=== PATIENT | female | born 1955 | race Caucasian/White ===

== ENCOUNTER 2020-07-04 11:48 | Inpatient (IN) | payer MEDICARE ==
[~2020-07-04] VITALS: Ht 152.4 cm; Wt 90.7 kg
[2020-07-04] MEDS ORDERED: ALBUTEROL SULF 0.083% NEB SOLN 3 ML NEB NEB STA (12:08)
[2020-07-04] MEDS ORDERED: METHYLPREDNISOLONE SOD SUCC 125 MG/2ML VIAL IV STA (12:08)
[2020-07-04] MEDS ORDERED: NITROGLYCERIN 2% OINT 1 GM PKT TOP ONE (12:15)
[2020-07-04] MEDS ORDERED: IPRATROPIUM BROMIDE 0.02% 2.5 ML NEB NEB ONE (12:15)
[2020-07-04 12:32] LABS: BASOPHILS # (AUTO) 0.1 (0.0-0.1); BASOPHILS % 0.7 % (0.0-1.0); EOSINOPHILS # (AUTO) 0.2 (0.0-0.4); EOSINOPHILS % 1.2 % (0.0-6.0); HEMATOCRIT 44.8 % (34.2-44.1); LYMPHOCYTES # (AUTO) 2.5 (1.0-3.2); LYMPHOCYTES % 13.7 % (18.0-39.1); MEAN CORPUSCULAR HEMOGLOBIN 29.8 pg (28-32); MEAN CORPUSCULAR HGB CONC 31.3 g/dL (31-35); MEAN CORPUSCULAR VOLUME 95.3 fL (81-99); MONOCYTES # (AUTO) 0.8 (0.2-0.8); MONOCYTES % 4.3 % (4.4-11.3); NEUTROPHILS # (AUTO) 14.3 (2.1-6.9); PLATELET COUNT 365 x10e3/uL (140-360); RED CELL DISTRIBUTION WIDTH 14.2 % (11.7-14.4)
[2020-07-04 12:38] LABS: INR 0.91; PROTHROMBIN TIME 12.8 seconds (11.9-14.5)
[2020-07-04 12:39] LABS: PARTIAL THROMBOPLASTIN TIME 28.2 seconds (23.8-35.5)
[2020-07-04 12:43] LABS: CLARITY,URINE CLEAR (CLEAR); COLOR,URINE YELLOW (YELLOW); LEUKOCYTE ESTERASE ,URINE NEGATIVE (NEGATIVE); NITRITE,URINE NEGATIVE (NEGATIVE)
[2020-07-04 12:44] LABS: BACTERIA,URINE RARE /HPF; KETONES,URINE NEGATIVE (NEGATIVE); PROTEIN,URINE DIPSTICK >=300 (NEGATIVE); URINE UROBILINOGEN 0.2 mg/dL (0.2 - 1)
[2020-07-04 12:46] LABS: AMPHETAMINES SCREEN,URINE NEGATIVE (NEGATIVE); BENZODIAZEPINES SCREEN,URINE POSITIVE (NEGATIVE); PHENCYCLIDINE SCREEN,URINE NEGATIVE (NEGATIVE)
[2020-07-04 12:47] LABS: ALANINE AMINOTRANSFERASE 69 IU/L (0-55); ALBUMIN 3.6 g/dL (3.5-5.0); ALBUMIN/GLOBULIN RATIO 0.9 (0.8-2.0); ALKALINE PHOSPHATASE 96 IU/L (40-150); ANION GAP 20.6 mmol/L (8-16); BLOOD UREA NITROGEN 13 mg/dL (7-26); BUN/CREATININE RATIO 16 (6-25); CALCIUM 9.1 mg/dL (8.4-10.2); CARBON DIOXIDE 20 mmol/L (22-29); CHLORIDE 103 mmol/L (98-107); CREATINE KINASE 45 IU/L (29-168); CREATININE, SERUM 0.81 mg/dL (0.57-1.11); EST GLOMERULAR FILTRATION RATE > 60 ML/MIN (60-); GLUCOSE 190 mg/dL (74-118); MAGNESIUM 1.9 MG/DL (1.3-2.1); POTASSIUM 4.6 mmol/L (3.5-5.1); SODIUM 139 mmol/L (136-145)
[2020-07-04] MEDS ORDERED: LEVOFLOXACIN 750MG/D5W 150ML 150 ML IV STA (12:56)
[2020-07-04] MEDS ORDERED: CEFTRIAXONE SOD 1 GM VIAL IV SCH (13:00)
[2020-07-04] MEDS ORDERED: CEFTRIAXONE SOD 1 GM in SODIUM CHLORIDE 0.9% 50ML 50 ML IV SCH (13:00)
[2020-07-04] MEDS ORDERED: AZITHROMYCIN 500MG/NS 250 ML 250 ML IV SCH (13:00)
[2020-07-04] MEDS ORDERED: SODIUM CHLORIDE 0.9% 500ML 500 ML IV ONE (13:15)
[2020-07-04] MEDS ORDERED: ALBUTEROL SULF 0.5% NEB SOLN 20 ML BTL ONE (13:31)
[2020-07-04] MEDS ORDERED: IPRATROPIUM BROMIDE 0.02% 2.5 ML NEB ONE (13:32)
[2020-07-04] MEDS ORDERED: ALBUTEROL SULF 0.083% NEB SOLN 3 ML NEB ONE (13:32)
[2020-07-04] MEDS ORDERED: ENALAPRILAT IV INJ 1.25 MG/ML VIAL IV STA (14:40)
[2020-07-04] MEDS ORDERED: ONDANSETRON HCL INJ 2MG/ML 2ML 2 MG/ML VIAL IV PRN (15:00)
[2020-07-04] MEDS ORDERED: MORPHINE SULFATE INJ 2 MG/ML SYR IV PRN (15:00)
[2020-07-04] MEDS ORDERED: HYDRALAZINE HCL 20 MG/ML VIAL IV PRN (15:00)
[2020-07-04] MEDS ORDERED: ALBUTEROL SULF 0.083% NEB SOLN 3 ML NEB NEB PRN (15:00)
[2020-07-04 16:45] VITALS: BP 145/81
[2020-07-04 17:15] VITALS: BP 145/81
[2020-07-04] MEDS ORDERED: ACETAMINOPHEN 325 MG TAB PO PRN (17:45)
[2020-07-04] MEDS ORDERED: FUROSEMIDE INJ 10 MG/ML 4 ML VIAL IV ONE (17:45)
[2020-07-04] MEDS: NITROGLYCERIN 2% OINT 1 GM PKT TOP SCH (18:06)
[2020-07-04 18:08] VITALS: BP 145/81
[2020-07-04 20:00] VITALS: BP 176/83
[2020-07-04] MEDS: FAMOTIDINE 20 MG/2 ML VIAL IV SCH (20:18)
[2020-07-04] MEDS: ALBUTEROL/IPRATROPIUM 3 ML NEB NEB SCH (20:25)
[2020-07-04] MEDS ORDERED: METHYLPREDNISOLONE SOD SUCC 125 MG/2ML VIAL IV SCH (22:00)
[2020-07-04 22:24] LABS: CREATINE KINASE MB 4.1 ng/mL (0-5.0)
[2020-07-05] VITALS (8 sets, daily range): BP systolic 145–176; BP diastolic 65–91
[2020-07-05] MEDS: NITROGLYCERIN 2% OINT 1 GM PKT TOP SCH (01:00)
[2020-07-05] MEDS ORDERED: POTASSIUM CHLORIDE 20 MEQ TAB CR PO PRN (01:15)
[2020-07-05] MEDS ORDERED: ALBUTEROL/IPRATROPIUM 3 ML NEB NEB PRN (01:15)
[2020-07-05] MEDS ORDERED: HYDROCODONE/APAP 5MG-325MG TAB PO PRN (01:15)
[2020-07-05] MEDS ORDERED: BENZONATATE 100 MG CAP PO PRN (01:15)
[2020-07-05] MEDS ORDERED: DIPHENHYDRAMINE HCL 25 MG CAP PO PRN (01:15)
[2020-07-05] MEDS ORDERED: HYDRALAZINE HCL 20 MG/ML VIAL IV PRN (01:15)
[2020-07-05] MEDS ORDERED: POLYETHYLENE GLYCOL 3350 17 GM PACK PO PRN (01:15)
[2020-07-05] MEDS ORDERED: ONDANSETRON HCL INJ 2MG/ML 2ML 2 MG/ML VIAL IV PRN (01:15)
[2020-07-05] MEDS ORDERED: MELATONIN 5 MG TABLET PO PRN (01:15)
[2020-07-05] MEDS ORDERED: DEXTROSE 50% SYRINGE 50 ML IV PRN ×2 (01:15)
[2020-07-05] MEDS ORDERED: DOCUSATE SODIUM 100 MG CAP PO PRN (01:15)
[2020-07-05] MEDS: ALBUTEROL/IPRATROPIUM 3 ML NEB NEB SCH ×4 (02:15→19:50)
[2020-07-05] MEDS: LOSARTAN POTASSIUM 100 MG TAB PO SCH ×2 (02:36→09:32)
[2020-07-05] MEDS: METHYLPREDNISOLONE SOD SUCC 40 MG/ML VIAL 1ML IV SCH ×2 (02:36→14:00)
[2020-07-05 06:49] LABS: BASOPHILS % 0.2 % (0.0-1.0); HEMATOCRIT 40.7 % (34.2-44.1); LYMPHOCYTES # (AUTO) 1.5 (1.0-3.2); LYMPHOCYTES % 13.2 % (18.0-39.1); MEAN CORPUSCULAR HEMOGLOBIN 29.5 pg (28-32); MEAN CORPUSCULAR HGB CONC 31.9 g/dL (31-35); MEAN CORPUSCULAR VOLUME 92.3 fL (81-99); MONOCYTES # (AUTO) 0.2 (0.2-0.8); NEUTROPHILS # (AUTO) 9.7 (2.1-6.9); NEUTROPHILS % 83.6 % (38.7-80.0); PLATELET COUNT 358 x10e3/uL (140-360); RED BLOOD COUNT 4.41 x10e6/uL (3.6-5.1)
[2020-07-05 07:22] LABS: ALANINE AMINOTRANSFERASE 52 IU/L (0-55); ALBUMIN 3.5 g/dL (3.5-5.0); ALBUMIN/GLOBULIN RATIO 0.9 (0.8-2.0); ALKALINE PHOSPHATASE 75 IU/L (40-150); ANION GAP 17.6 mmol/L (8-16); BLOOD UREA NITROGEN 13 mg/dL (7-26); BUN/CREATININE RATIO 16 (6-25); CALCIUM 9.5 mg/dL (8.4-10.2); CARBON DIOXIDE 25 mmol/L (22-29); CHLORIDE 101 mmol/L (98-107); CHOL/HDL RATIO 3.5 (3.0-3.6); CHOLESTEROL 196 MD/DL (0-199); CREATININE, SERUM 0.81 mg/dL (0.57-1.11); EST GLOMERULAR FILTRATION RATE > 60 ML/MIN (60-); GLUCOSE 231 mg/dL (74-118); HDL CHOLESTEROL 56 MG/DL (40-60); LDL CHOLESTEROL 119 MG/DL (60-130); POTASSIUM 3.6 mmol/L (3.5-5.1); SODIUM 140 mmol/L (136-145); TRIGLYCERIDES 103 MG/DL (0-149)
[2020-07-05] MEDS: PANTOPRAZOLE SOD 40 MG TABEC PO SCH (07:30)
[2020-07-05] MEDS ORDERED: LOSARTAN POTASSIUM 100 MG TAB PO SCH (09:00)
[2020-07-05] MEDS: FAMOTIDINE 20 MG/2 ML VIAL IV SCH ×2 (09:31→20:47)
[2020-07-05] MEDS: LEVOFLOXACIN 500MG/D5W 100ML 100 ML IV SCH (11:12)
[2020-07-05] MEDS ORDERED: SODIUM CHLORIDE 0.9% 250ML 250 ML ONE (11:16)
[2020-07-05] MEDS: ACETAMINOPHEN 325 MG TAB PO PRN (12:20)
[2020-07-05] MEDS: ASPIRIN 81 MG ENTERIC COATED PO SCH (13:45)
[2020-07-05] MEDS ORDERED: FUROSEMIDE INJ 10 MG/ML 4 ML VIAL IV ONE (14:30)
[2020-07-05] MEDS ORDERED: POTASSIUM CHLORIDE 20 MEQ TAB CR PO ONE (14:30)
[2020-07-05] MEDS ORDERED: IOPAMIDOL 370 MG/ML 200 ML INFUS..BTL INJ ONE (15:01)
[2020-07-05] MEDS ORDERED: SODIUM CHLORIDE 0.9% 50ML 50 ML ONE (15:02)
[2020-07-05] MEDS ORDERED: CARVEDILOL 3.125 MG TAB PO SCH (17:00)
[2020-07-05] MEDS ORDERED: ENOXAPARIN SOD INJ 40 MG/0.4 ML SYR SC SCH (17:00)
[2020-07-05] MEDS: ATORVASTATIN 20 MG TAB PO SCH (20:47)
[2020-07-06] VITALS (8 sets, daily range): BP systolic 143–176; BP diastolic 83–108
[2020-07-06] MEDS: ALBUTEROL/IPRATROPIUM 3 ML NEB NEB SCH ×5 (01:52→23:50)
[2020-07-06] MEDS: METHYLPREDNISOLONE SOD SUCC 40 MG/ML VIAL 1ML IV SCH ×2 (02:00→13:00)
[2020-07-06] MEDS: PANTOPRAZOLE SOD 40 MG TABEC PO SCH (09:41)
[2020-07-06] MEDS: FAMOTIDINE 20 MG/2 ML VIAL IV SCH ×2 (09:41→21:45)
[2020-07-06] MEDS: ASPIRIN 81 MG ENTERIC COATED PO SCH (09:41)
[2020-07-06] MEDS: LOSARTAN POTASSIUM 100 MG TAB PO SCH (09:42)
[2020-07-06] MEDS: LEVOFLOXACIN 500MG/D5W 100ML 100 ML IV SCH (12:38)
[2020-07-06] MEDS ORDERED: WAL-FEX ALLERG180 MG PO (12:42)
[2020-07-06] MEDS ORDERED: METHYLPREDNISOLONE SOD SUCC 40 MG/ML VIAL 1ML IV SCH (13:00)
[2020-07-06] MEDS: [UNRECOGNIZED DRUG - REMARK] PO SCH (13:32)
[2020-07-06] MEDS ORDERED: LORATADINE 10 MG TAB PO SCH (14:00)
[2020-07-06] MEDS: ACETAMINOPHEN 325 MG TAB PO PRN (16:14)
[2020-07-06] MEDS: CARVEDILOL 3.125 MG TAB PO SCH (16:50)
[2020-07-06] MEDS: ATORVASTATIN 20 MG TAB PO SCH (21:45)
[2020-07-07] VITALS: BP 157/76
[2020-07-07 04:00] VITALS: BP 150/81
[2020-07-07 07:38] VITALS: BP 162/90
[2020-07-07 07:48] VITALS: BP 162/90
[2020-07-07] MEDS: ASPIRIN 81 MG ENTERIC COATED PO SCH (08:10)
[2020-07-07] MEDS: [UNRECOGNIZED DRUG - REMARK] PO SCH (08:10)
[2020-07-07] MEDS: CARVEDILOL 3.125 MG TAB PO SCH (08:10)
[2020-07-07] MEDS: ALBUTEROL/IPRATROPIUM 3 ML NEB NEB SCH ×2 (08:10→13:40)
[2020-07-07] MEDS: PANTOPRAZOLE SOD 40 MG TABEC PO SCH (08:10)
[2020-07-07] MEDS: LOSARTAN POTASSIUM 100 MG TAB PO SCH (08:10)
[2020-07-07] MEDS: FAMOTIDINE 20 MG/2 ML VIAL IV SCH (08:13)
[2020-07-07] MEDS ORDERED: HOME MEDICATION--PATIENTS OWN PO SCH (09:00)
[2020-07-07] MEDS ORDERED: COREG6.25 MG PO (11:14)
[2020-07-07] MEDS ORDERED: PREDNISONE20 MG PO (11:14)
[2020-07-07] MEDS ORDERED: LEVOFLOXACIN250 MG PO (11:14)
[2020-07-07] MEDS ORDERED: ASPIRIN81 MG PO (11:15)
[2020-07-07] MEDS ORDERED: LOSARTAN POTAS100 MG PO (11:15)
[2020-07-07] MEDS ORDERED: LIPITOR20 MG PO (11:15)
[2020-07-07] MEDS: LEVOFLOXACIN 500MG/D5W 100ML 100 ML IV SCH (11:32)
[2020-07-07 11:38] VITALS: BP 157/81
[2020-07-07 11:56] LABS: HEMATOCRIT 42.7 % (34.2-44.1); HEMOGLOBIN 13.7 g/dL (12.0-16.0)
[2020-07-07 12:23] LABS: ANION GAP 12.9 mmol/L (8-16); BLOOD UREA NITROGEN 22 mg/dL (7-26); BUN/CREATININE RATIO 29 (6-25); CALCIUM 9.2 mg/dL (8.4-10.2); CARBON DIOXIDE 27 mmol/L (22-29); CHLORIDE 101 mmol/L (98-107); CREATININE, SERUM 0.77 mg/dL (0.57-1.11); EST GLOMERULAR FILTRATION RATE > 60 ML/MIN (60-); GLUCOSE 103 mg/dL (74-118); POTASSIUM 3.9 mmol/L (3.5-5.1); SODIUM 137 mmol/L (136-145)
[2020-07-07] MEDS ORDERED: METHYLPREDNISOLONE SOD SUCC 40 MG/ML VIAL 1ML IV SCH (13:00)
[2020-07-07 16:12] VITALS: BP 143/81
== END 2020-07-07 18:15 | disposition home or self-care (01) | DRG 871 ==
LOC: EDBD 11:48 → ER 12:25 → ERHOLD 14:56 → MED/SURG3 16:15
PROVIDERS: ADMIT Internal Medicine; ATTEND Internal Medicine
DX: A41.9 Sepsis, unspecified organism (principal); J18.9 Pneumonia, unspecified organism; I50.33 Acute on chronic diastolic (congestive) heart failure; J44.1 Chronic obstructive pulmonary disease with (acute) exacerbation; I16.1 Hypertensive emergency; J44.0 Chronic obstructive pulmonary disease with (acute) lower respiratory infection; F17.210 Nicotine dependence, cigarettes, uncomplicated; E66.9 Obesity, unspecified; E78.5 Hyperlipidemia, unspecified; R06.03 Acute respiratory distress; Z68.39 Body mass index [BMI] 39.0-39.9, adult; Z88.1 Allergy status to other antibiotic agents; Z88.0 Allergy status to penicillin; Z86.73 Personal history of transient ischemic attack (TIA), and cerebral infarction without residual deficits; Z20.822 Contact with and (suspected) exposure to COVID-19; I11.0 Hypertensive heart disease with heart failure
CPT/HCPCS: 36415; 51700; 71045; 71260; 80048; 80053; 80061; 80307; 80320; 81001; 82550; 82553; 83036; 83605; 83735; 83880; 84484; 85014; 85018; 85025; 85610; 85730; 87040; 87086; 93005; 93306; 94640; 99285; J1940; J1956; J2270; J2920; J2930; J7040; J7050; Q9967; U0002

== ENCOUNTER 2020-07-21 20:48 | Emergency (ER) | payer MEDICARE ==
[~2020-07-21] VITALS: Ht 152.4 cm; Wt 90.7 kg
[~2020-07-21 20:48] MED LIST: ASPIRIN81 MG PO; COREG6.25 MG PO; LEVOFLOXACIN250 MG PO; LIPITOR20 MG PO; LOSARTAN POTAS100 MG PO; PREDNISONE20 MG PO; WAL-FEX ALLERG180 MG PO
[2020-07-21 21:58] LABS: BASOPHILS # (AUTO) 0.1 (0.0-0.1); BASOPHILS % 0.8 % (0.0-1.0); EOSINOPHILS # (AUTO) 0.2 (0.0-0.4); EOSINOPHILS % 2.3 % (0.0-6.0); HEMOGLOBIN 13.2 g/dL (12.0-16.0); LYMPHOCYTES # (AUTO) 2.6 (1.0-3.2); LYMPHOCYTES % 26.5 % (18.0-39.1); MEAN CORPUSCULAR HGB CONC 32.2 g/dL (31-35); MEAN CORPUSCULAR VOLUME 93.2 fL (81-99); MONOCYTES # (AUTO) 0.7 (0.2-0.8); MONOCYTES % 7.5 % (4.4-11.3); NEUTROPHILS % 61.9 % (38.7-80.0); PLATELET COUNT 317 x10e3/uL (140-360); RED CELL DISTRIBUTION WIDTH 13.6 % (11.7-14.4)
[2020-07-21 22:17] LABS: ALANINE AMINOTRANSFERASE 17 IU/L (0-55); ALBUMIN 3.6 g/dL (3.5-5.0); ALBUMIN/GLOBULIN RATIO 1.1 (0.8-2.0); ALKALINE PHOSPHATASE 71 IU/L (40-150); BLOOD UREA NITROGEN 9 mg/dL (7-26); BUN/CREATININE RATIO 12 (6-25); CALCIUM 8.9 mg/dL (8.4-10.2); CARBON DIOXIDE 25 mmol/L (22-29); CHLORIDE 108 mmol/L (98-107); CREATINE KINASE 34 IU/L (29-168); CREATININE, SERUM 0.74 mg/dL (0.57-1.11); EST GLOMERULAR FILTRATION RATE > 60 ML/MIN (60-); GLUCOSE 98 mg/dL (74-118); SODIUM 143 mmol/L (136-145)
[2020-07-21] MEDS ORDERED: LASIX40 MG PO (23:46)
[2020-07-22] MEDS ORDERED: FUROSEMIDE 40 MG TAB PO ONE (00:30)
[2020-07-22] MEDS ORDERED: CLONIDINE HCL 0.1 MG TAB PO ONE (00:30)
== END 2020-07-22 03:45 | disposition home or self-care (01) ==
LOC: ER 21:25
DX: R06.02 Shortness of breath (principal); R60.9 Edema, unspecified; I50.9 Heart failure, unspecified; I16.0 Hypertensive urgency; E66.9 Obesity, unspecified; R94.31 Abnormal electrocardiogram [ECG] [EKG]; Z86.73 Personal history of transient ischemic attack (TIA), and cerebral infarction without residual deficits; F17.210 Nicotine dependence, cigarettes, uncomplicated
CPT/HCPCS: 36415; 71045; 80053; 82550; 82553; 83880; 84484; 85025; 93005; 99283